=== PATIENT | male | born 1975 | race Caucasian/White ===

== ENCOUNTER 2018-12-22 09:47 | Emergency (ER) | payer SELFPAY ==
[~2018-12-22] VITALS: Ht 172.7 cm; Wt 127.0 kg
[2018-12-22 09:51] VITALS: BP 179/83
--- NOTE | 2018-12-22 10:25 | PHYS DOC ---
Past Medical History Additional Past Medical Histor: insomnia Past Surgical History: No Surgical History Alcohol Use: None Social History Narrative: pt states he did meth 1-2 days ago Adult General Chief Complaint Chief Complaint: FOOT INJURY PAIN HPI HPI Patient is a 43 year old male who presents with right foot pain. Patient rates the foot pain at 4 out of 10 described as throbbing and intermittent since this morning, he states he has been riding a bicycle from [facility] to [facility], he states he caught a bus ride a couple times on the way to [facility]. He states is going to [facility] for rehabilitation. He states his phone and he needs charge it in the ED and proceed to rehab. He is also requesting ELDON bandage for the foot and refusing any imaging stating he just needs to charge his phone. He appears intoxicated. He will not describe what is going to [facility] rehabilitation for. He states he does not want any workup in the emergency room , he wants his phone to charge up and he will proceed to go to rehab. Eldon wrap applied to patient's right foot by the ED RN, neurovascular exam is intact. Ice elevation encouraged. Patient was discharged back is OTC pain relievers. Follow-up with orthopedic doctor. Review of Systems Review of Systems Constitutional: Denies fever or chills [] Musculoskeletal: Reports right foot pain Integument: Denies rash or skin lesions [] Neurologic: Denies headache, focal weakness or sensory changes [] All other systems were reviewed and found to be within normal limits, except as documented in this note. Allergies Allergies Allergies Coded Allergies Type Severity Reaction Last Updated Verified No Known Drug Allergies 12/22/18 No Physical Exam Physical Exam Constitutional: Well developed, well nourished, no acute distress, non-toxic appearance. [] Skin: Warm, dry, no erythema, no rash. [] Back: No tenderness, no CVA tenderness. [] Extremities: Right foot with no obvious deformity, cheilosis noted on the heel of the foot. No pain or tenderness on the navicular bone or the base of the fifth metatarsal of the right foot. +2 right pedal pulse. Full range of motion to the right foot. Cap refill less than 2 seconds the right toes. Long unkept toe nails Neurologic: Alert and oriented X 3, normal motor function, normal sensory function, no focal deficits noted. [] Psychologic: Appears intoxicated Current Patient Data Vital Signs Vital Signs Date Time Temp Pulse Resp B/P (MAP) Pulse Ox O2 Delivery O2 Flow Rate FiO2 12/22/18 09:51 99.0 108 24 179/83 (115) 98 Room Air 99.0 EKG EKG [] Radiology/Procedures Radiology/Procedures [] Course & Med Decision Making Course & Med Decision Making Pertinent Labs and Imaging studies reviewed. (See chart for details) See HPI Dragon Disclaimer Dragon Disclaimer This electronic medical record was generated, in whole or in part, using a voice recognition dictation system. Departure Departure Impression: Primary Impression: Right foot pain Disposition: HOME, SELF-CARE Condition: STABLE Referrals: NO PCP (PCP) RICHA GRIFFIN II, MD Follow up in 1 week Patient Instructions: Musculoskeletal Pain Additional Instructions: You were seen in the emergency room for right foot pain. Please try to ice elevate the extremity. Take [id number] pain relievers as needed. Follow- up with the provided orthopedic doctor in 1-2 weeks. AUDREY [facility] Dec 22, 2018 10:25
== END 2018-12-22 10:39 | disposition home or self-care (01) ==
LOC: ER 09:47
DX: M79.671 Pain in right foot (principal); F10.129 Alcohol abuse with intoxication, unspecified; Y90.9 Presence of alcohol in blood, level not specified
CPT/HCPCS: 99282